=== PATIENT | female | born 1985 | race Two or more races ===

== ENCOUNTER 2017-07-16 22:21 | Emergency (ER) | payer OTHER ==
[2017-07-16 22:29] VITALS: TEMP 98.1
--- NOTE | 2017-07-16 22:49 | CPEKG ---
Heart Rate: 99 RR Interval: 606 P-R Interval: 164 QRSD Interval: 78 QT Interval: 332 QTC Interval: 426 P [place]: 48 QRS [place]: 19 T Wave [place]: 15 EKG Severity - OTHERWISE NORMAL ECG - EKG Impression: SINUS ARRHYTHMIA, RATE 66-114 Electronically Signed By: Stalin Castro 16-Jul-2017 23:59:01
[2017-07-16] MEDS ORDERED: LORazepam 1 MG TAB PO ONE (23:37)
[2017-07-16] MEDS ORDERED: LORazepam 0.5 MG TAB ONE (23:37)
--- NOTE | 2017-07-17 00:31 | EDPHY ---
H & P Smoking Status: Never smoked Time Seen by Provider: 07/16/17 23:26 HPI/ROS: CHIEF COMPLAINT: Heart palpitations HISTORY OF PRESENT ILLNESS: 31-year-old female presents to the emergency department complaining of heart palpitations. The patient states around 930 this evening she was trying to go to sleep and then she felt like her heart was racing. She did not have pain associated with this she. She did not feel short of breath. No back pain. No reported trauma. She does admit to drinking alcohol over the weekend. She has never had these symptoms in the past. She does not take prescribed medication. She denies substance abuse. REVIEW OF SYSTEMS: Constitutional: No fever, no chills. Eyes: No double or blurry vision. ENT: No sore throat. Respiratory: No cough, no shortness of breath. Cardiac: As above. No chest pain. Gastrointestinal: No abdominal pain, vomiting or diarrhea. Genitourinary: No dysuria. Musculoskeletal: No neck or back pain. Skin: No rashes. Neurological: No headache. (Krista Francis) Past Medical/Surgical History: Negative (Krista Francis) Social History: [employer] student (KarlaKrista alexandra) Physical Exam: General Appearance: Alert, no distress. Mildly anxious. Eyes: Pupils equal and round. Extraocular motions are all intact. ENT: Mouth: Mucous membranes moist. Respiratory: No wheezing, rhonchi, or rales, lungs are clear to auscultation. Cardiovascular: Regular rate and rhythm. Tachycardic with heart rate of 107. Gastrointestinal: Abdomen is soft and nontender, no masses, no rebound or guarding, bowel sounds normal. Neurological: Alert and oriented x 3, cranial nerves II through XII grossly intact Skin: Warm and dry, no rashes. Musculoskeletal: Nontender to palpate along the cervical, thoracic or lumbar spine. Neck is supple. Extremities: Full range of motion and no peripheral edema. Psychiatric: Patient is oriented X 3, there is no agitation. (Krista Francis) Constitutional: Initial Vital Signs Temperature (C) 36.7 C 07/16/17 22:27 Heart Rate 100 07/16/17 22:27 Respiratory Rate 18 07/16/17 22:27 Blood Pressure 133/84 H 04/03/18 22:27 O2 Sat (%) 100 07/16/17 22:27 O2 Delivery Mode Room Air Allergies/Adverse Reactions: No Known Allergies Allergy (Verified 07/16/17 22:36) Home Medications: Medication Instructions Recorded Spironolactone 07/16/17 Medical Decision Making - Diagnostics EKG Interpretation: EKG revealed normal sinus rhythm. This was reviewed by Dr. Mariaelena Harrington. See interpretation in trace master. (Krista Francis) ED Course/Re-evaluation: The patient was given 0.5 mg of oral Ativan. She was feeling much better. Her EKG was unremarkable. She would like to be discharged home. She declined any laboratory testing. I did discuss her symptoms of anxiety. She understands that no further testing was done in the emergency department because she did not want any further testing. She was given primary care referral and instructed to return if she developed any chest pain, difficulty breathing, recurring tachycardia, or if she felt worse in any way. (Krista Francis) PHYSICIAN DOCUMENTATION: The patient was evaluated and managed by the Physician Debarker Operator. My co- signature indicates that I have reviewed this chart and I agree with the findings and plan of care as documented. I am the secondary supervising physician. (Mariaelena Harrington) Differential Diagnosis: Including but not limited to dehydration, anxiety, electrolyte abnormality ( Krista Francis) - Data Points Medications Given: Discontinued Medications Lorazepam (Ativan) 0.5 mg PO EDNOW ONE Stop: 07/16/17 23:38 Last Admin: 07/16/17 23:38 Dose: Not Given Departure - Departure Disposition: Home, Routine, Self-Care Clinical Impression: Anxiety, Palpitations Condition: Good Instructions: Heart Palpitations (ED), Anxiety (ED) Additional Instructions: Return to the emergency department if you develop pain in your chest, difficulty breathing, or any other concerns. Referrals: Tre Toscano MD [[facility] [place] Primary Care Provider] - As per Instructions (Primary care provider pss delivery professional)
[2017-07-17 00:40] VITALS: BP 121/79; PULSE 88
[2017-07-17 00:41] VITALS: RESP 16; O2SAT 98
== END 2017-07-17 00:40 | disposition home or self-care (01) ==
DX: F41.9 Anxiety disorder, unspecified (principal)